=== PATIENT | male | born 1935 | race Caucasian/White ===

== ENCOUNTER 2016-10-24 07:51 | Observation (INO) | payer BC, MEDICARE, OTHER ==
[2016-10-23 16:12] LABS: BLOOD UREA NITROGEN 30 mg/dL (7-18)
[2016-10-23 16:15] LABS: ASPARTATE AMINO TRANSFERASE 24 U/L (15-37)
[~2016-10-24] VITALS: Ht 188 cm; Wt 99.8 kg
[~2016-10-24 07:51] MED LIST: DRON400T PO; MELO-184 PO; METO25TA35 PO; PRAV10TA2 PO
[2016-10-24] MEDS ORDERED: SODIUM CHLORIDE 0.9% 1,000 ML IV SCH (08:07)
[2016-10-24] MEDS ORDERED: ASPI325T80 PO (08:15)
[2016-10-24] MEDS ORDERED: CEFAZOLIN PMX 1GM/50ML 50 ML IVPB ONE (08:30)
[2016-10-24] MEDS ORDERED: FENTANYL PF 100 MCG/2ML ONE (10:01)
[2016-10-24] MEDS ORDERED: CEFAZOLIN 1,000 MG ONE (10:02)
[2016-10-24] MEDS ORDERED: MIDAZOLAM 1 MG/ML, 5ML ONE (10:02)
[2016-10-24] MEDS ORDERED: LIDOCAINE 2%, 20ML ONE (10:02)
[2016-10-24] MEDS ORDERED: CEFAZOLIN PMX 1GM/50ML 50 ML ONE (10:02)
[2016-10-24] MEDS ORDERED: ACETAMINOPHEN 325 MG TABLET PO PRN (11:30)
[2016-10-24] MEDS ORDERED: HYDROcodone/APAP 5/325 TABLET PO PRN (11:30)
[2016-10-24 12:08] VITALS: BP 153/98
[2016-10-24] MEDS ORDERED: OMEG100023 PO (12:18)
[2016-10-24] MEDS ORDERED: TEST5POW5 PO (12:18)
[2016-10-24] MEDS ORDERED: VITA150T PO (12:18)
[2016-10-24] MEDS ORDERED: DOXY25TA PO (12:18)
[2016-10-24] MEDS ORDERED: ASCO10004 PO (12:18)
[2016-10-24] MEDS ORDERED: BEE550CA PO (12:18)
[2016-10-24] MEDS ORDERED: NONI PO (12:18)
[2016-10-24] MEDS ORDERED: NIAC500T85 PO (12:18)
[2016-10-24 12:58] VITALS: BP 153/79
[2016-10-24] MEDS: CEFAZOLIN PMX 1GM/50ML 50 ML IVPB SCH (18:16)
[2016-10-24] MEDS: DRONEDARONE 400MG TABLET PO SCH (19:45)
[2016-10-24] MEDS: METOPROLOL TARTRATE 25 MG TABLET PO SCH (19:45)
[2016-10-24] MEDS: SODIUM CHLORIDE FLUSH 10ML SYR IVF SCH (19:46)
[2016-10-24 19:51] VITALS: BP 158/83
[2016-10-24] MEDS ORDERED: ZOLPIDEM 5MG TABLET PO PRN (21:00)
[2016-10-24] MEDS ORDERED: ASPIRIN 325 MG TABLET EC PO SCH (21:00)
[2016-10-24] MEDS ORDERED: PRAVASTATIN SODIUM 40 MG TABLET PO SCH (21:00)
[2016-10-25 02:45] VITALS: BP 131/77
[2016-10-25] MEDS: CEFAZOLIN PMX 1GM/50ML 50 ML IVPB SCH (02:46)
[2016-10-25 08:34] VITALS: BP 162/81
[2016-10-25] MEDS: METOPROLOL TARTRATE 25 MG TABLET PO SCH (08:36)
[2016-10-25] MEDS: SODIUM CHLORIDE FLUSH 10ML SYR IVF SCH (08:36)
[2016-10-25] MEDS: DRONEDARONE 400MG TABLET PO SCH (08:36)
[2016-10-25] MEDS ORDERED: MELOXICAM 15 MG TABLET PO SCH (09:00)
[2016-10-25] MEDS ORDERED: ASPIRIN 325 MG TABLET EC PO SCH (09:00)
== END 2016-10-25 09:57 | disposition home or self-care (01) ==
LOC: CACL 07:51 → ORIP 11:22 → 5SO 11:44
PROVIDERS: ADMIT Internal Medicine Cardiovascular Disease; ATTEND Internal Medicine Cardiovascular Disease
DX: I49.5 Sick sinus syndrome (principal); I44.0 Atrioventricular block, first degree; I48.0 Paroxysmal atrial fibrillation; R00.1 Bradycardia, unspecified; R94.31 Abnormal electrocardiogram [ECG] [EKG]; I10 Essential (primary) hypertension; Z87.891 Personal history of nicotine dependence
CPT/HCPCS: 33208; 36005; 36415; 71010; 71020; 80053; 85025; 85610; 85730; 93005; 96365; 96366; 96375; 99156; 99157; C1779; C1785; C1892; G0378; J0690; J2250; J3010; J3490; Q9967